=== PATIENT | male | born 1980 | race Caucasian/White ===

== ENCOUNTER 2020-12-15 02:36 | Outpatient (CLI) | payer BC, SELFPAY ==
--- NOTE | 2020-12-15 07:30 | DI.RAD_ITS ---
Exam(s) XR HIP RT COMPLETE AP PELVIS EXAM: XR HIP RT COMPLETE AP PELVIS INDICATION: ACUTE RT HIP PAIN,M25.551. COMPARISON: No exams were available for comparison TECHNIQUE: 2D digital imaging was performed. FINDINGS: Hip joint spaces are well maintained. There is mild bilateral acetabular spurring. SI joints and pu bic symphysis are unremarkable. IMPRESSION: Mild degenerative changes of both hips. DATA REPOSITORY: RADIATION DOSE DELIVERED:
== END 2020-12-15 02:56 ==
PROVIDERS: PCP Nurse Practitioner; Visit Provider Nurse Practitioner Family
DX: M25.551 Pain in right hip (principal); M16.0 Bilateral primary osteoarthritis of hip
CPT/HCPCS: 73502

== ENCOUNTER 2020-12-16 20:32 | Outpatient (CLI) | payer BC, SELFPAY ==
--- NOTE | 2020-12-16 10:45 | DI.RAD_ITS ---
Exam(s) XR LUMBAR SPINE COMPLETE EXAM: XR LUMBAR SPINE COMPLETE CLINICAL HISTORY: question lumbar disc etiology M25.551 PAIN RT HIP TECHNIQUE: COMPARISON: No exams were available for comparison FINDINGS: Five views were obtained. The intervertebral disc spaces are fairly well maintained. There is no co mpression fracture seen. There is no evidence of spondylolysis or spondylolisthesis. Little if any degenerative changes noted. IMPRESSION: Negative examination of the lumbar spine. The requisition raises the possibility disc disease and if there is a question of disc herniation additional evaluation with lumbar MRI would be suggested. RADIATION DOSE DELIVERED: Total DLP
== END 2020-12-16 20:52 ==
PROVIDERS: PCP Nurse Practitioner; Visit Provider Nurse Practitioner Family
DX: M25.551 Pain in right hip (principal)
CPT/HCPCS: 72110

== ENCOUNTER 2020-12-26 03:01 | Outpatient (CLI) | payer BC, SELFPAY ==
--- NOTE | 2020-12-26 07:45 | DI.MRI_ITS ---
Exam(s) MR LUMBAR SPINE WO EXAM: MR LUMBAR SPINE WO CLINICAL HISTORY: Bulging lumbar disc M51.26 DISC DISPLACEMENT LUMBAR REGION TECHNIQUE: Multiplanar multisequence MRI of the Lumbar Spine was performed. CONTRAST MATERIAL: Noncontrast. COMPARISON: CR XR LUMBAR SPINE COMPLETE from 12/16/2020 FINDINGS: Bones: The last intervertebral disc space is designated the L5/S1 level for the numbering purpose of this examination. The vertebral body heights are well maintained. Alignment is satisfactory. The sig nal characteristics are unremarkable. Cord: The conus tip ends at the T12 level. It is of normal size and signal intensity. T12-L1: No disc herniations or bulges are present. L1-2: No disc herniations or bulges are present. L2-3: No disc herniations or bulges are present. L3-4: No disc herniations or bulges are present. L4-5: There is partial disc desiccation. There is mild broad-based disc bulging. There is a superi mposed right sided disc herniation with superior extrusion of disc material. The disc material appea rs to extend into the right neural foramen.. L5-S1: Partial disc desiccation. Small endplate osteophytes per projecting posteriorly. Small cent ral disc protrusion without definite nerve root impingement. Mild facet joint degenerative changes m ild right neural foraminal narrowing. The visualized SI joints and sacrum are well maintained. The paraspinal soft tissues are unremarkable . . IMPRESSION: Right-sided disc herniation at L4-5 with extrusion of disc material and extension of disc material in to the right neural foramen. DATA REPOSITORY:
== END 2020-12-26 03:21 ==
PROVIDERS: PCP Nurse Practitioner; Visit Provider Nurse Practitioner Family
DX: M51.26 Other intervertebral disc displacement, lumbar region (principal)
CPT/HCPCS: 72148

== ENCOUNTER 2021-02-22 02:24 | Outpatient (CLI) | payer BC, SELFPAY ==
[2021-02-22 15:44] LABS: Hemoglobin A1C 5.3 % (<5.7)
[2021-02-22 16:55] LABS: Calculated LDL 93 mg/dL (<100); Cholesterol 169 mg/dL (<200); HDL Cholesterol 60 mg/dL (40-60); Triglyceride 80 mg/dL (<150)
[2021-02-22 18:19] LABS: PSA, Screening 1.2 ng/mL (0.0-2.5)
== END 2021-02-22 02:25 | disposition home or self-care (01) ==
LOC: LOS 02:24
PROVIDERS: PCP Nurse Practitioner; Visit Provider Nurse Practitioner
DX: Z13.1 Encounter for screening for diabetes mellitus (principal); Z13.6 Encounter for screening for cardiovascular disorders; Z12.5 Encounter for screening for malignant neoplasm of prostate; Z80.42 Family history of malignant neoplasm of prostate
CPT/HCPCS: 36415; 80061; 84153; 83036

== ENCOUNTER 2021-03-27 19:39 | Outpatient (REF) | payer BC, SELFPAY ==
[2021-03-28 13:36] LABS: COVID-19 RT-PCR UVMMC Result Negative (Negative)
== END 2021-03-27 19:40 | disposition home or self-care (01) ==
LOC: LBN 19:39
PROVIDERS: PCP Nurse Practitioner; Visit Provider Family Medicine
DX: R50.9 Fever, unspecified (principal); J02.9 Acute pharyngitis, unspecified; Z20.822 Contact with and (suspected) exposure to COVID-19
CPT/HCPCS: U0003; 87070

== ENCOUNTER 2022-05-04 01:45 | Outpatient (CLI) | payer BC, SELFPAY ==
[2022-05-04 15:56] LABS: COMMENT (LAB VIEW ONLY) 230.87 mg/dL
[2022-05-04 15:58] LABS: ALT 23 U/L (16-63); AST 22 U/L (15-37); Albumin 4.3 g/dL (3.4-5.0); Alkaline Phosphatase 58 U/L (46-116); Anion Gap 7.5 mmol/L (3-11); BUN 19 mg/dL (7-18); Bilirubin, Total 0.9 mg/dL (0.2-1.0); CO2 31.5 mmol/L (21.0-32.0); CREATININE 0.9 mg/dL (0.70-1.30); Calcium 9.2 mg/dL (8.5-10.1); Calculated LDL 90 mg/dL (<100); Chloride 100 mmol/L (98-107); Cholesterol 165 mg/dL (<200); Estimated GFR 108.68 (mL/min/1.73m2); Glucose 88 mg/dL (74-106); HDL Cholesterol 67 mg/dL (40-60); Potassium 3.6 mmol/L (3.5-5.1); Sodium 139 mmol/L (136-145); Total Protein 7.4 g/dL (6.4-8.2); Triglyceride 40 mg/dL (<150)
[2022-05-04 22:35] LABS: PSA, Screening 1.7 ng/mL (<=2.5)
[2022-05-06 11:02] LABS: HIV-1/2 Ag & Ab Screen Negative (Negative)
[2022-05-07 09:09] LABS: Hepatitis C Ab w Rflx HCV PCR Negative (Negative)
== END 2022-05-04 01:46 | disposition home or self-care (01) ==
LOC: LBO 01:47
PROVIDERS: PCP Nurse Practitioner Family; Visit Provider Nurse Practitioner Family
DX: Z11.4 Encounter for screening for human immunodeficiency virus [HIV] (principal); Z11.59 Encounter for screening for other viral diseases; I10 Essential (primary) hypertension; Z80.42 Family history of malignant neoplasm of prostate
CPT/HCPCS: 36415; 80053; 80061; 84153; 86803; 87389; 82043; 82570

== ENCOUNTER 2022-07-12 01:36 | Outpatient (CLI) | payer BC, SELFPAY ==
--- NOTE | 2022-07-12 08:00 | DI.MRI_ITS ---
Exam(s) MR LUMBAR SPINE WO EXAM: MR LUMBAR SPINE WO CLINICAL HISTORY: Exacerbationof pain, bulging lumbar disc, m51.26. TECHNIQUE: Multiplanar multisequence MRI of the Lumbar spine was performed. COMPARISON: CR XR LUMBAR SPINE COMPLETE from 12/16/2020 MR MR LUMBAR SPINE WO from 12/26/2020 FINDINGS: Bones: The last intervertebral disc space is designated the L5/S1 level for the numbering purpose of this examination. The vertebral body heights are well maintained. Alignment is satisfactory. The ma rrow signal characteristics are unremarkable. Cord: The conus tip ends at the T12 level. It is of normal size and signal intensity. T12-L1: No disc herniations or bulges are present. No central spinal canal or neural foraminal stenos is. L1-2: No disc herniations or bulges are present. No central spinal canal or neural foraminal stenosis . L2-3: No disc herniations or bulges are present. No central spinal canal or neural foraminal stenosis . L3-4: No disc herniations or bulges are present. No central spinal canal or neural foraminal stenosis . L4-5: Partial disc desiccation and mild loss of disc height. Small end plate osteophytes and mild co ncentric disc bulging. Previously noted foraminal disc herniation no longer present. No central spi nal canal or neural foraminal stenosis. L5-S1: Moderate loss of disc height, small endplate osteophytes and mild broad-based disc bulging. R ight paracentral disc herniation with inferior extrusion of disc material impinging on the right S1 n erve root. The extruded disc material measures approximately 2 cm transverse by 1 cm AP by 1.5 cm ce phalo caudad. No central spinal canal stenosis. Degenerative changes of the facet joint combined wi th disc osteophytes to produce mild right neural foraminal narrowing.. The visualized SI joints and sacrum are well maintained. Soft tissues: The paraspinal soft tissues are unremarkable. IMPRESSION: Large right paracentral disc extrusion at L5-S1 with nerve root impingement.. DATA REPOSITORY:
== END 2022-07-12 01:56 ==
LOC: DI 01:36
PROVIDERS: PCP Nurse Practitioner Family; Visit Provider Nurse Practitioner Family
DX: M51.26 Other intervertebral disc displacement, lumbar region (principal); M51.17 Intervertebral disc disorders with radiculopathy, lumbosacral region
CPT/HCPCS: 72148

== ENCOUNTER 2022-11-07 09:27 | Outpatient (REF) | payer BC, SELFPAY ==
[2022-11-07 11:42] LABS: Anion Gap 6.7 mmol/L (3-11); BUN 16 mg/dL (7-18); CO2 30.3 mmol/L (21.0-32.0); CREATININE 0.9 mg/dL (0.70-1.30); Calcium 9.1 mg/dL (8.5-10.1); Chloride 104 mmol/L (98-107); Estimated GFR 108.68 (mL/min/1.73m2); Glucose 93 mg/dL (74-106); Potassium 4.7 mmol/L (3.5-5.1); Sodium 141 mmol/L (136-145)
== END 2022-11-07 09:28 | disposition home or self-care (01) ==
LOC: LBN 09:27
PROVIDERS: PCP Nurse Practitioner Family; Visit Provider Nurse Practitioner Family
DX: I10 Essential (primary) hypertension (principal)
CPT/HCPCS: 80048

== ENCOUNTER 2023-04-04 03:25 | Outpatient (CLI) | payer BC, SELFPAY ==
[2023-04-04 15:01] LABS: Anion Gap 5.4 mmol/L (3-11); BUN 17 mg/dL (7-18); CO2 31.6 mmol/L (21.0-32.0); Calcium 9.5 mg/dL (8.5-10.1); Chloride 101 mmol/L (98-107); Estimated GFR 95.18 (mL/min/1.73m2); Glucose 96 mg/dL (74-106); Potassium 3.9 mmol/L (3.5-5.1); Sodium 138 mmol/L (136-145)
[2023-04-04 21:51] LABS: PSA, Screening 2.2 ng/mL (<=2.5)
== END 2023-04-04 03:26 | disposition home or self-care (01) ==
LOC: LBO 03:25
PROVIDERS: PCP Nurse Practitioner Family; Visit Provider Nurse Practitioner Family
DX: Z12.5 Encounter for screening for malignant neoplasm of prostate (principal); I10 Essential (primary) hypertension
CPT/HCPCS: 36415; 80048; 84153

== ENCOUNTER 2024-03-24 08:56 | Outpatient (REF) | payer BC, SELFPAY ==
[2024-03-24 13:05] LABS: Anion Gap 5.5 mmol/L (3-11); BUN 18 mg/dL (7-18); CO2 31.5 mmol/L (21.0-32.0); CREATININE 0.9 mg/dL (0.70-1.30); Calcium 9.1 mg/dL (8.5-10.1); Chloride 105 mmol/L (98-107); Estimated GFR 107.33 (mL/min/1.73m2); Glucose 79 mg/dL (74-106); Potassium 4.6 mmol/L (3.5-5.1); Sodium 142 mmol/L (136-145)
[2024-03-24 23:23] LABS: PSA, Screening 4.4 ng/mL (<=2.5)
== END 2024-03-24 08:57 | disposition home or self-care (01) ==
LOC: LBN 08:56
PROVIDERS: PCP Nurse Practitioner Family; Visit Provider Nurse Practitioner Family
DX: Z12.5 Encounter for screening for malignant neoplasm of prostate (principal); I10 Essential (primary) hypertension
CPT/HCPCS: 80048; 84153

== ENCOUNTER 2024-04-16 03:54 | Outpatient (CLI) | payer BC, SELFPAY ==
[2024-04-16 18:27] LABS: PSA, Diagnostic 4.3 ng/mL (<=2.5)
== END 2024-04-16 03:55 | disposition home or self-care (01) ==
LOC: LBO 03:54
PROVIDERS: PCP Nurse Practitioner Family; Visit Provider Nurse Practitioner Family
DX: R97.20 Elevated prostate specific antigen [PSA] (principal)
CPT/HCPCS: 36415; 84153

== ENCOUNTER 2024-05-22 14:35 | Outpatient (REF) | payer BC, SELFPAY ==
--- NOTE | 2024-05-22 14:20 | PROST_PTH ---
PATIENT: Traik Acharya LOC: [facility] U#:[id number] AGE/SX: 44/M ROOM: RE05/22/[address]: Gurpreet Mae MD : 1980 BED: DIS: 05/22/2024 SPEC #: [id number] RECD: 05/22/24 17:38 STATUS: ZAHIDA KANG #: [id number] RONEY: 05/22/24 14:[address]: Gurpreet Mae DEPT: Surgical Specimen RECD BY: Becki Lopez ENTERED: 05/22/24 17:39 SP TYPE: PROST OTHR DR: Raymond Grider DNP Tissues: 1 - PROSTATE NEEDLE BIOPSY 2 - PROSTATE NEEDLE BIOPSY 3 - PROSTATE NEEDLE BIOPSY 4 - PROSTATE NEEDLE BIOPSY 5 - PROSTATE NEEDLE BIOPSY 6 - PROSTATE NEEDLE BIOPSY 7 - PROSTATE NEEDLE BIOPSY 8 - PROSTATE NEEDLE BIOPSY 9 - PROSTATE NEEDLE BIOPSY 10 - PROSTATE NEEDLE BIOPSY 11 - PROSTATE NEEDLE BIOPSY 12 - PROSTATE NEEDLE BIOPSY Procedures: GROSS AND MICRO LEVEL 4 Comments: [id number]
== END 2024-05-22 14:36 | disposition home or self-care (01) ==
LOC: LBN 14:35
PROVIDERS: PCP Nurse Practitioner Family; Visit Provider Urology
DX: C61 Malignant neoplasm of prostate (principal)
CPT/HCPCS: 88305

== ENCOUNTER 2024-06-10 16:15 | Outpatient (CLI) | payer BC, SELFPAY ==
--- NOTE | 2024-06-10 16:15 | RT.EKG_ITS ---
APPROVED REPORT Exam: Resting ECG Reason for Exam: Chest discomfort Patient Location: O HR:68 bpm ECG Measurements Heart Rate 68 AXIS FL 144 P 73 QRSd 105 QRS 62 QT 418 T 70 QTc 445 Conclusion Sinus rhythm...normal P axis, V-rate 50- 99 Anteroseptal infarct, age indeterminate...Q >35mS, T neg, V1-V2
== END 2024-06-10 16:16 | disposition home or self-care (01) ==
LOC: DI.CM 16:15
PROVIDERS: PCP Nurse Practitioner Family; Visit Provider Physician Assistant
DX: R07.89 Other chest pain (principal)
CPT/HCPCS: 93010

== ENCOUNTER 2024-06-10 17:07 | Emergency (ER) | payer BC, SELFPAY ==
[2024-06-10] VITALS (34 sets, daily range): BP systolic 141–173; BP diastolic 101–108; PULSE 65–81; RESP 14–17; TEMP 36.2–36.7; O2SAT 98–100
--- NOTE | 2024-06-10 17:00 | RT.EKG_ITS ---
APPROVED REPORT Exam: Resting ECG Reason for Exam: CP x 2-3 days Patient Location: E HR:64 bpm ECG Measurements Heart Rate 64 AXIS NV 156 P 47 QRSd 98 QRS 24 QT 404 T 32 QTc 418 Conclusion Sinus rhythm...normal P axis, V-rate 60- 99
[2024-06-10 18:35] LABS: Abs Immature Grans 0.01 10^3/uL (0.0-0.06); Absolute Basophil Count 0.02 10^3/uL (0.0-0.2); Absolute Eosinophil Count 0.07 10^3/uL (0.0-0.7); Absolute Lymphocyte Count 1.04 10^3/uL (1.2-3.4); Absolute Monocyte Count 0.31 10^3/uL (0.1-0.8); Absolute Neutrophil Count 2.87 10^3/uL (1.2-6.7); Basophils % 0.5 %; Eosinophils % 1.6 %; HCT 46.1 % (40.0-50.0); Immature Grans % 0.2 %; Lymphocytes % 24.1 %; MCH 30.4 pg (27.0-33.0); MCHC 32.5 % (32.0-36.0); MCV 94 fL (80-95); MPV 10.1 fL (8.0-11.0); Monocytes % 7.2 %; Neutrophils % 66.4 %; Platelet Count 270 10^3/uL (130-400); RBC 4.93 10^6/uL (4.36-5.78); RDW-SD 44.6 fL; WBC 4.32 10^3/uL (4.4-10.8)
--- NOTE | 2024-06-10 18:37 | ED.GENADUL_ITS ---
Discharge Plan Disposition Patient Disposition: Home Condition: Good Discharge Details Clinical Impression: Atypical chest pain, Hypertension Primary Care Provider: Raymond Greenfield ED Provider: Ag Henson Home Meds and New Rx's Prescriptions: Continued multivitamin [Daily Multi-Vitamin] Tablet 1 tab PO DAILY lisinopril 10 mg tablet 10 mg PO DAILY Qty: 90 3RF clindamycin-benzoyl peroxide 1.2 %(1 % base) -5 % gel 1 applic topical DAILY Qty: 90 2RF niacinamide 500 mg tablet 500 mg PO DAILY Discharge Instructions Instructions: Costochondritis, Controlling your blood pressure through lifestyle, Chest Pain, Adult ED Discharge Data Discharge Physician: Ag Henson HPI General Date/Time Provider Initiated Documentation: 06/10/24 18:29 . HPI Narrative: Patient presents emergency department stating that he was recently started having chest pain for the last week. He states he is under a lot of stress for he has a strong family history of prostate cancer and he was recently diagnosed with a small prostate cancer which he has to undergo prostatectomy soon. Said he has not been sleeping and he is having some midsternal sharp chest pains not related to exercise and can occur at anytime of the day. Reports she also takes lisinopril for hypertension and he has not taken the last 3 days. 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 States that he does not get the chest pain on exercise Related Data Home Medications ?Medication ?Instructions ?Recorded ?Confirmed multivitamin (Daily Multi-Vitamin 1 tab PO DAILY 03/22/23 06/10/24 tablet) lisinopril 10 mg tablet 10 mg PO DAILY #90 tabs 03/24/24 06/10/24 clindamycin 1.2 % (1 % 1 applic topical DAILY #90 grams 04/29/24 06/10/24 base)-benzoyl peroxide 5 % topical gel niacinamide 500 mg tablet 500 mg PO DAILY 06/10/24 06/10/24 Previous Rx's ?Medication ?Instructions ?Recorded lisinopril 10 mg tablet 10 mg PO DAILY #90 tabs 03/24/24 clindamycin 1.2 % (1 % 1 applic topical DAILY #90 grams 04/29/24 base)-benzoyl peroxide 5 % topical gel Allergies Allergy/AdvReac Type Severity Reaction Status Date / Time No Known Allergies Allergy Verified 06/10/24 17:15 General Stated Complaint: Chest Pain TEREZA: 3 Review of Systems Narrative: Review of Systems: Constitutional: No fevers, chills, sweats Eye: No recent visual problems ENT: No ear pain, nasal congestion, sore throat Respiratory: No shortness of breath, cough Cardiovascular: By think, palpitations, syncope Gastrointestinal: No nausea, vomiting, diarrhea Genitourinary: No hematuria Angel/Lymph: Negative for bruising tendency, swollen lymph glands Endocrine: Negative for excessive thirst, excessive hunger Musculoskeletal: No back pain, neck pain, joint pain, muscle pain, decreased range of motion Integumentary: No rash, pruritus, abrasions Neurologic: Alert & oriented X 4 Psychiatric: No anxiety, depression Exam Narrative Exam Narrative: Exam; vitals signs as reported above normal Constitutional; In no acute distress, afebrile General: cooperative, healthy appearing, comfortable and no acute distress HEENT: Head: normal to inspection, no palpable skull fracture and normocephalic atraumatic Eyes: : appearance normal, both eyes and all related structures EOM intact bilaterally Pupils: PERRL : conjunctiva normal Direct ophthalmoscopy: normal light reflex, normal conjunctiva, normal visual acuity Ears: Normal TM, normal external canal Nose: normal no rhinorreha Neck no JVD, supple non tender Neck: normal visual inspection, full ROM and no lymphadenopathy Chest: normal inspection of the chest Respiratory : normal respiratory effort and able to speak in complete sentences no wheezing no rales Cardio Rate: regular rate, rhythm: regular rhythm normal heart sounds S1 and S2 no murmurs, gallops, or rubs GI : normal to inspection, normal bowel sounds, soft, non tender, non distended, no organomegaly Back/Spine/ no CVA tenderness Thoracic/Lumbar Spine: no tenderness or deformities Skin no rashes or lesions Neuro: patient alert oriented x 4 and no meningeal signs, Cranial Nerves: CN's II-XI intact bilaterally, Cognition: normal cognition, Speech: speech normal, Gait: normal gait, Depp tendon reflexes normal 2+ muscle strength 5/5 bilaterally Extremities, no edema, full range of motion, normal strength l: Course Vital Signs Vital signs: Vital Signs Temperature 36.2 C L 06/10/24 17:13 Pulse 71 06/10/24 17:13 Respiratory Rate 16 06/10/24 17:13 Blood Pressure 173/105 H 06/10/24 17:13 Pulse Oximetry 98 06/10/24 17:13 Temperature 36.2 C L 06/10/24 17:13 Temperature Source Oral 06/10/24 17:13 Pulse 71 06/10/24 17:13 Respiratory Rate 16 06/10/24 17:13 Blood Pressure 173/105 H 06/10/24 17:13 Blood Pressure Position Sitting 06/10/24 17:13 Pulse Oximetry 98 06/10/24 17:13 Oxygen Delivery Method Room Air 06/10/24 17:13 Oxygen Flow Rate 0 06/10/24 17:13 Pain Level 3 06/10/24 17:13 Lab/Test Results Lab/Test Results: Laboratory Tests Range/Units 06/10/24 18:20 WBC (4.4-10.8) 10^3/uL 4.32 L RBC (4.36-5.78) 10^6/uL 4.93 Hgb (13.5-17.5) g/dL 15.0 Hct (40.0-50.0) % 46.1 MCV (80-95) fL 94 MCH (27.0-33.0) pg 30.4 MCHC (32.0-36.0) % 32.5 RDW (11.8-14.1) % 13.0 Plt Count (130-400) 10^3/uL 270 MPV (8.0-11.0) fL 10.1 Immature Gran % % 0.2 Neutrophils % % 66.4 Lymphocytes % % 24.1 Monocytes % % 7.2 Eosinophils % % 1.6 Basophils % % 0.5 Nucleated RBC % (0.0-0.3) % 0.0 Absolute Neutrophils (1.2-6.7) 10^3/uL 2.87 Absolute Lymphocytes (1.2-3.4) 10^3/uL 1.04 L Absolute Monocytes (0.1-0.8) 10^3/uL 0.31 Absolute Eosinophils (0.0-0.7) 10^3/uL 0.07 Absolute Basophils (0.0-0.2) 10^3/uL 0.02 Medical Decision Making MDM: Summary: Patient presented to the emergency department complaining of sharp chest pain for about a week which is coincidental that it is after he was diagnosed with having prostate cancer which she will undergo a prostatectomy soon. Reports also some episodes of insomnia. Here in the emergency department he had an EKG done which does not show any abnormalities labs done which include D-dimer and serial troponins are negative. Echocardiogram at the bedside [id number] ultrasound was done showing a normal left ventricle no regional abnormalities. At this time after acidification he has a heart score of of 1 so he is at very low probability for acute coronary syndrome. Most like this is related to the stress and anxiety that he is undergoing to and he will be discharged home Data Review Analysis All the data on this patient was reviewed by me including laboratory and imaging studies as well as bedside studies performed by me Independent review of Studies Imaging POCUS as reported above Lab: As reported above Risk Stratification: Patient who only has hypertension is a risk factor with a heart score of 1 Differential Diagnosis: 1. Atypical pain 2. Anxiety 3. Chest wall pain 4. Costochondritis 5. Consultants: Shared disposition: Patient understands position and will follow taking his blood pressure meds Impression: Medical Records Medical records reviewed: Yes I reviewed the patient's medical records. Lab Data Lab results reviewed: Yes I reviewed the patient's lab results. ECG Data Attestation: I personally reviewed and interpreted this ECG (s) as follows: Prior ECG tracings: available for review Interpretation: Normal sinus rhythm with heart rate [address]-T change Quality:SDOH Health Related Social Needs: No Data to Display PFSH All Active Problems (Updated 06/10/24 @ 22:06 by Ag Henson MD) Atypical chest pain (Acute) Prostate cancer (Chronic) Elevated PSA, less than 10 ng/ml (Acute) Swelling of knee joint, left (Acute) Sebaceous cyst (Acute) Hypertension (Chronic) Family history of prostate cancer (Acute) Father around age 60 Bilateral tinnitus (Acute) Raynauds syndrome (Acute) below 20 degree Bulging lumbar disc (Acute) Dx Dec 05, 2020, in PT; spine clinic [facility]- as needed f/u Medical History HLD (hyperlipidemia) Onychomycosis toenails, resolved with topical antifungals Hip pain, right Family History Mother No problems noted. Father Cancer throat cancer/prostate cancer Hypertension Son No problems noted. Daughter No problems noted. Maternal Grandfather No problems noted. Paternal Grandfather , 70's No problems noted. Maternal Grandmother No problems noted. Paternal Grandmother Diabetes Social History Smoking/Tobacco Use Status: Never Second Hand Exposure: Yes Smoking risk assessment performed?: Yes Alcohol Intake: current Alcohol Intake frequency: a few times a month Alcohol type: beer Drug use: Never Substance use type: does not use Caregiver/Support person: No Household members: spouse and children Housing: house Communication Needs: None Do you need help understanding health information?: Never Pets and animals: Yes Pets and animals: dog(s) Sexually active: Yes Do you think of yourself as: straight/heterosexual Current gender identity: male What is your relationship status?: How often do you talk on the phone with friends or family?: once per week How often do you get together with friends or relatives?: twice per week How often do you attend synagogue or scientology services?: 1-3 times per year Do you belong to any clubs or organized social groups?: no Panel score (0-1 are the most socially isolated patients): 2 What type of physical activity do you participate in: none Nancie/Holiness: No preference Special nancie needs: No Seatbelt use: always Helmet use: Yes Helmet use: always Drive intox or ride w/intox driver examiner: No PAWSS Have you Been Recently Intoxicated or Drunk Within the Last 30 days?: No Have you Ever Experienced Previous Episodes of Alcohol Withdrawal?: No Have you ever Experienced Withdrawal Seizures?: No Have you ever Experienced Delirium Tremens(DT)s?: No Have you ever undergone Alcohol Rehabilitation Treatment (i.e, inpt ot outpatient treatment programs)?: No Have you ever Experienced Blackouts?: No Have you ever Combined Alcohol with other Downers within the last 90 days?: No Have you ever Combined Alcohol with any other Substance of Abuse during the last 90 days?: No Positive Blood Alcohol level on Presentation? [PCS.BAL]: Unable to Obtain Evidence of Increased Autonomic Activity (i.e. HR>120, tremor, sweating, agitation, nausea)?: No Result: 0 POCUS Exam (ED) Limited Cardiac Exam DATE OF EXAM: 06/10/24 TIME OF EXAM: 21:30 PROVIDER THAT PERFORMED THE STUDY: Ag Henson REASON FOR EXAM: Chest pain VISUALIZED STRUCTURES: Four Chambers, Left atrium, Left ventricle, LVOT, Right atrium, Right ventricle, Aortic valve, Mitral valve, Interventricular septum and IVC VIEW OBTAINED: Apical 4-Chamber, Parasternal long-axis, Parasternal short-axis and Subxiphoid PERTINENT FINDINGS/IMPRESSION: No apparent abnormalities DIFFERENTIAL DIAGNOSES: No regional wall abnormalities no pericardial effusion normal ejection fraction normal RV size and function normal echocardiogram Exam complete
[2024-06-10 18:53] LABS: ALT 30 U/L (16-63); AST 19 U/L (15-37); Albumin 4.3 g/dL (3.4-5.0); Alkaline Phosphatase 66 U/L (46-116); Anion Gap 6.3 mmol/L (3-11); BUN 16 mg/dL (7-18); Bilirubin, Total 0.61 mg/dL (0.2-1.0); CO2 32.7 mmol/L (21.0-32.0); CREATININE 0.9 mg/dL (0.70-1.30); Calcium 9.1 mg/dL (8.5-10.1); Chloride 104 mmol/L (98-107); Estimated GFR 107.33 (mL/min/1.73m2); Glucose 95 mg/dL (74-106); Lipase 48 U/L (<78); Sodium 143 mmol/L (136-145); Total Protein 7.6 g/dL (6.4-8.2); Troponin I 7 ng/L (<or=76)
[2024-06-10 19:00] LABS: D-Dimer 207 ng/mlFEU (<500)
[2024-06-10 20:30] LABS: Troponin I 6 ng/L (<or=76)
== END 2024-06-10 22:13 | disposition home or self-care (01) ==
PROVIDERS: Emergency Provider Emergency Medicine Emergency Medical Services; PCP Nurse Practitioner Family
DX: R07.89 Other chest pain (principal); F41.9 Anxiety disorder, unspecified; I10 Essential (primary) hypertension; E78.5 Hyperlipidemia, unspecified; C61 Malignant neoplasm of prostate
CPT/HCPCS: 36415; 80053; 83690; 93005; 93308; 99285; 84484; 85025; 85379; 93010; 99284

== ENCOUNTER 2024-07-16 01:30 | Outpatient (CLI) | payer BC, SELFPAY ==
--- NOTE | 2024-07-16 07:00 | DI.MRI_ITS ---
Exam(s) MR ABDOMEN WO/W EXAM: MR ABDOMEN WO/W CLINICAL HISTORY: abnl liver uptake on psma at [facility] [place],liver mass,r16.0 TECHNIQUE: Multiplanar multisequence MRI of the Abdomen was performed. CONTRAST MATERIAL: IV Contrast: 16 mL of Dotarem contrast administered. FINDINGS: Lung bases: Unremarkable. Liver: There is no evidence of a solid hepatic mass. There are 2 small well-circumscribed cyst in th e right lobe of the liver. The largest measures 5 mm. Pancreas: Unremarkable. No evidence of a pancreatic mass or peripancreatic fluid collection. Gallbladder and Bile Ducts: No evidence of cholelithiasis. No biliary ductal dilatation is present. Adrenals: No evidence of an adrenal mass. Kidneys: No evidence of a solid renal mass or obstruction. A simple cyst in the left renal pelvis. N o follow-up is recommended. Spleen: Unremarkable. Note is made of an accessory spleen in the hilum. Bowel: No evidence of bowel obstruction or bowel wall thickening. Aorta: Unremarkable. Soft Tissues: Unremarkable. Bone: Marrow signal is within normal limits. Lymph Nodes: Unremarkable. IMPRESSION: No evidence of a P[place]ock metastasis. DATA REPOSITORY:
[2024-07-16] MEDS: Normal Saline - Diluent 50 ML VIAL 25 ML IJ (08:59)
[2024-07-16] MEDS: Gadoterate meglumine 20 ML VIAL 16 ML IVP (09:00)
== END 2024-07-16 01:50 ==
LOC: DI 01:30
PROVIDERS: PCP Nurse Practitioner Family; Visit Provider Nurse Practitioner Gerontology
DX: R16.0 Hepatomegaly, not elsewhere classified (principal); R93.2 Abnormal findings on diagnostic imaging of liver and biliary tract
CPT/HCPCS: 74183

== ENCOUNTER 2024-08-24 16:01 | Outpatient (REF) | payer BC, SELFPAY ==
[2024-08-24 11:13] LABS: Bilirubin Negative (Negative); Blood Negative (Negative); Clarity Clear (Clear); Glucose 100 mg/dL (Negative); Ketones Negative (Negative); Leukocyte Esterase Negative (Negative); Nitrite Negative (Negative); Urobilinogen 0.2 mg/dL (Up to 0.2); pH 6.5 (5-8)
== END 2024-08-24 16:02 | disposition home or self-care (01) ==
LOC: LBN 16:01
PROVIDERS: PCP Nurse Practitioner Family; Visit Provider Nurse Practitioner Gerontology
DX: C61 Malignant neoplasm of prostate (principal)
CPT/HCPCS: 81003; 87086

== ENCOUNTER 2024-11-11 08:42 | Outpatient (CLI) | payer BC, SELFPAY | END 2024-11-11 08:43 | disposition home or self-care (01) | LOC: LBO 08:43 | PROVIDERS: PCP Nurse Practitioner Family; Visit Provider Nurse Practitioner Gerontology | DX: C61 Malignant neoplasm of prostate (principal) | CPT/HCPCS: 36415; 84153 ==

== ENCOUNTER 2024-12-12 16:05 | Emergency (ER) | payer BC, SELFPAY ==
[2024-12-12 16:09] VITALS: BP 135/89; PULSE 66; TEMP 36.6; O2SAT 94
--- NOTE | 2024-12-12 16:53 | W.ED.GENAD ---
Discharge Plan Disposition Patient Disposition: Home Discharge Details Clinical Impression: Laceration of left hand Primary Care Provider: Raymond Greenfield ED Provider: Efren Zayas Home Meds and New Rx's Prescriptions: Continued lisinopril 10 mg tablet 10 mg PO DAILY Qty: 90 3RF clindamycin-benzoyl peroxide 1.2 %(1 % base) -5 % gel 1 applic topical DAILY Qty: 90 2RF niacinamide 500 mg tablet 500 mg PO DAILY Discharge Instructions Instructions: Laceration Repair With Stitches ED Additional Instructions: Please follow-up with your primary care provider regarding your visit to the emergency department today. Be sure to discuss results of all test performed here today to include radiology, and laboratory testing as well as results for any pending cultures. You may follow-up with your primary care provider, urgent care or emergency department for suture removal I would recommend with within 10 to 14 days. Should your symptoms worsen, or if you develop new concerning symptoms such as redness, worsening pain, puslike discharge, rash, fever, chills nausea and vomiting, please return immediately emergency department for further evaluation. HPI General Date/Time Provider Initiated Documentation: 12/12/24 16:22. HPI Narrative: MDM/Narrative: 44-year-old male with hand laceration. No foreign bodies, tetanus up-to-date, normal hand movement. Area numbed, wound irrigated and closed. Discharge home with instructions to return if increased pain, redness, swelling, or signs of infection. This document was created with assistance from [employer]. The patient consented to its use. Disposition: Home HPI: The patient is a 44-year-old left-handed male who presents with a laceration to the hand sustained from a fall onto a metal stake while engaging in physical activity (playing tag). The injury occurred approximately 30 minutes prior to presentation. The patient reports experiencing burning pain at the site of the laceration, denies any additional injuries, and confirms the absence of foreign bodies within the wound. The patient has a medical history significant for prostate cancer, for which he underwent surgical intervention in 2021. He is currently in recovery and has not received chemotherapy. ROS: Negative besides as mentioned above Exam: Vital signs: Reviewed. General Appearance: Alert and oriented. No acute distress. HEENT: NCAT, EOMI, not icteric. External ears normal. No rhinorrhea. Moist mucous membranes. Neck: Supple, full range of motion, no observable masses, No meningeal sign. Respiratory: No Respiratory distress. No tachypnea. Cardiovascular: RRR, no edema. Gastrointestinal: Soft, nondistended, No rebound tenderness. Back: No midline tenderness to palpation or palpable step-offs of the C/T/L spine. Musculoskeletal: Full range of motion in hand, normal thumb and finger strength. Skin: There is approximately 3 cm stellate on the palmar aspect just proximal to the thumb over the thenar eminence hand laceration, no foreign bodies. Neurological: Normal Gait, Grossly intact. Psychiatric: Appropriate for situation. Related Data Home Medications ?Medication ?Instructions ?Recorded ?Confirmed lisinopril 10 mg tablet 10 mg PO DAILY #90 tabs 03/24/24 07/06/24 clindamycin 1.2 % (1 % 1 applic topical DAILY #90 grams 04/29/24 07/06/24 base)-benzoyl peroxide 5 % topical gel niacinamide 500 mg tablet 500 mg PO DAILY 06/10/24 07/06/24 Previous Rx's ?Medication ?Instructions ?Recorded lisinopril 10 mg tablet 10 mg PO DAILY #90 tabs 03/24/24 clindamycin 1.2 % (1 % 1 applic topical DAILY #90 grams 04/29/24 base)-benzoyl peroxide 5 % topical gel Allergies Allergy/AdvReac Type Severity Reaction Status Date / Time No Known Allergies Allergy Verified 06/26/24 16:17 General Stated Complaint: Laceration TEREZA: 3 Course Vital Signs Vital signs: Vital Signs Temperature 36.6 C 12/12/24 16:09 Pulse 66 12/12/24 16:09 Blood Pressure 135/89 12/12/24 16:09 Pulse Oximetry 94 12/12/24 16:09 Temperature 36.6 C 12/12/24 16:09 Temperature Source Oral 12/12/24 16:09 Pulse 66 12/12/24 16:09 Blood Pressure 135/89 12/12/24 16:09 Pulse Oximetry 94 12/12/24 16:09 Procedure Laceration Laceration 1: Date of Procedure: 12/12/24 Time of procedure: 16:54 Provider that performed the procedure: Efren Zayas Standard Time Out Performed: Yes Patient Consented: Verbally Site: hand Side (If applicable): left Description: stellate Depth: simple, single layer Local anesthetic: Lidocaine 1% and with Epi Amount of anesthesia used (mL): 3 Skin layer closed with: nylon Suture size: 5-0 Number of sutures:: 5 Technique: simple, interrupted Complications: None PFSH All Active Problems (Updated 12/12/24 @ 16:56 by Efren Zayas MD) Laceration of left hand (Acute) History of robot-assisted laparoscopic radical prostatectomy (Acute ~08/2024) Acute stress reaction (Acute) Prostate cancer (Chronic) Elevated PSA, less than 10 ng/ml (Acute) Swelling of knee joint, left (Acute) Sebaceous cyst (Acute) Hypertension (Chronic) Family history of prostate cancer (Acute) Father around age 60 Bilateral tinnitus (Acute) Raynauds syndrome (Acute) below 20 degree Bulging lumbar disc (Acute) Dx Dec 05, 2020, in PT; [place] [facility] [place] f[place]u Medical History HLD (hyperlipidemia) Onychomycosis toenails, resolved with topical antifungals Hip pain, right Family History Mother No problems noted. Father Cancer throat cancer/prostate cancer Hypertension Son No problems noted. Daughter No problems noted. Maternal Grandfather No problems noted. Paternal Grandfather , 70's No problems noted. Maternal Grandmother No problems noted. Paternal Grandmother Diabetes Social History Smoking/Tobacco Use Status: Never Second Hand Exposure: Yes Smoking risk assessment performed?: Yes Alcohol Intake: current Alcohol Intake frequency: a few times a month Alcohol type: beer Drug use: Never Substance use type: does not use Caregiver/Support person: No Household members: spouse and children Housing: house Communication Needs: None Do you need help understanding health information?: Never Pets and animals: Yes Pets and animals: dog(s) Sexually active: Yes Do you think of yourself as: straight/heterosexual Current gender identity: male What is your relationship status?: How often do you talk on the phone with friends or family?: once per week How often do you get together with friends or relatives?: twice per week How often do you attend yazdanism or congregational services?: 1-3 times per year Do you belong to any clubs or organized social groups?: no Panel score (0-1 are the most socially isolated patients): 2 What type of physical activity do you participate in: none Nancie/Jewish: No preference Special nancie needs: No Seatbelt use: always Helmet use: Yes Helmet use: always Drive intox or ride w/intox 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
== END 2024-12-12 17:17 | disposition home or self-care (01) ==
PROVIDERS: Emergency Provider General Practice; PCP Nurse Practitioner Family
DX: S61.412A Laceration without foreign body of left hand, initial encounter (principal); W01.118A Fall on same level from slipping, tripping and stumbling with subsequent striking against other sharp object, initial encounter; Y93.02 Activity, running
CPT/HCPCS: 12002

== ENCOUNTER 2024-12-24 11:10 | Emergency (ER) | payer BC, SELFPAY ==
--- NOTE | 2024-12-24 11:28 | ED.GENADUL_ITS ---
Discharge Plan Disposition Patient Disposition: Home Condition: Stable Discharge Details Clinical Impression: Encounter for removal of sutures Primary Care Provider: Raymond Greenfield ED Provider: Angela Fischer Home Meds and New Rx's Prescriptions: No Action No Known Home Meds Discharge Instructions Instructions: Stitches Removal Additional Instructions: You were seen in the emergency department today for evaluation and removal of the stitches in your left hand. In our department a full physical exam that was quite reassuring, your wound is healing well, and 5 stitches were removed. You can continue to use bacitracin and bandaging over the next few days to keep the area clean and dry. Please follow-up with your primary care provider in the next few days to discuss this visit and any symptoms that change, worsen, or persist. Thank you for allowing us to be part of your care. HPI General Mode of arrival: ambulatory . Date/Time Provider Initiated Documentation: 12/24/24 11:10 . Limitations to Documentation: no limitations . Information obtained by: patient and old records reviewed . HPI Narrative: This is a 44-year-old male patient presenting for suture removal. The patient was seen in our facility approximately 12 days ago, had a laceration over the thenar aspect of the left hand, had 5 stitches placed. Since that event he reports he has been healing well, he is not experiencing pain, has not noted redness or purulent drainage from the area. The patient reports that he is otherwise in his normal state of health and has no acute concerns today. No new numbness, tingling, or weakness, no fevers at home. Related Data Home Medications ?Medication ?Instructions ?Recorded ?Confirmed Unknown [No Known Home Meds] 12/24/24 0 12/24/24 Allergies Allergy/AdvReac Type Severity Reaction Status Date / Time No Known Allergies Allergy Verified 12/24/24 11:26 General Stated Complaint: Recheck TEREZA: 4 Exam Narrative Exam Narrative: Gen: Awake and alert, in no apparent distress HEENT: Non-icteric sclera Neck: Supple Lungs: No apparent respiratory distress, normal respiratory effort. CV: Appears well perfused Abdomen: Non-distended MSK: Moves 4 extremities without apparent limitation in ROM. The patient's left thenar eminence has an approximately 1-1/2 cm laceration with 5 Prolene sutures visualized. The wound is well-approximated and healing appropriately, no surrounding redness, induration, or swelling, no drainage noted Skin: Visualized skin without rashes, cyanosis. Neuro: Normal Gait, no obvious focal deficits or facial asymmetry. Speaks in full, clear sentences. Psych: Appropriate for situation. Course Vital Signs Vital signs: Comment pt declined VS at this time 12/24/24 11:21 Medical Decision Making This is a 44-year-old male patient presenting for evaluation for suture removal. Differential includes but is not limited to appropriately healing laceration, no evidence on physical examination for cellulitis or abscess, wound dehiscence. The sutures were removed at bedside, the patient tolerated the procedure well. The area was redressed with bacitracin and an adhesive bandage and I counseled the patient on wound care instructions for the next few days. At this time, the patient has had a full medical evaluation and is safe for discharge to home. They are hemodynamically stable, ambulatory, and tolerating PO. They are understanding of the follow-up plan and return precautions. They left our facility without incident. Angela Fischer MD [facility], 1928–1983 All Active Problems (Updated 12/24/24 @ 11:29 by Angela Fischer MD) Encounter for removal of sutures (Acute) Laceration of left hand (Acute) History of robot-assisted laparoscopic radical prostatectomy (Acute ~08/2024) Acute stress reaction (Acute) Prostate cancer (Chronic) Elevated PSA, less than 10 ng/ml (Acute) Swelling of knee joint, left (Acute) Sebaceous cyst (Acute) Hypertension (Chronic) Family history of prostate cancer (Acute) Father around age 60 Bilateral tinnitus (Acute) Raynauds syndrome (Acute) below 20 degree Bulging lumbar disc (Acute) Dx Dec 05, 2020, in PT; [place] [facility] [place] Medical History HLD (hyperlipidemia) Onychomycosis toenails, resolved with topical antifungals Hip pain, right Family History Mother No problems noted. Father Cancer throat cancer/prostate cancer Hypertension Son No problems noted. Daughter No problems noted. Maternal Grandfather No problems noted. Paternal Grandfather , 70's No problems noted. Maternal Grandmother No problems noted. Paternal Grandmother Diabetes Social History Smoking/Tobacco Use Status: Never Second Hand Exposure: Yes Smoking risk assessment performed?: Yes Alcohol Intake: current Alcohol Intake frequency: a few times a month Alcohol type: beer Drug use: Never Substance use type: does not use Caregiver/Support person: No Household members: spouse and children Housing: house Communication Needs: None Do you need help understanding health information?: Never Pets and animals: Yes Pets and animals: dog(s) Sexually active: Yes Do you think of yourself as: straight/heterosexual Current gender identity: male What is your relationship status?: How often do you talk on the phone with friends or family?: once per week How often do you get together with friends or relatives?: twice per week How often do you attend judaism or baptist services?: 1-3 times per year Do you belong to any clubs or organized social groups?: no Panel score (0-1 are the most socially isolated patients): 2 What type of physical activity do you participate in: none Nancie/Jain: No preference Special nancie needs: No Seatbelt use: always Helmet use: Yes Helmet use: always Drive intox or ride w/intox 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
== END 2024-12-24 11:34 | disposition home or self-care (01) ==
PROVIDERS: Emergency Provider Emergency Medicine; PCP Nurse Practitioner Family
DX: Z48.02 Encounter for removal of sutures (principal)

== ENCOUNTER 2025-02-05 03:21 | Outpatient (CLI) | payer BC, SELFPAY | END 2025-02-05 03:22 | disposition home or self-care (01) | PROVIDERS: PCP Nurse Practitioner Family; Visit Provider Nurse Practitioner Gerontology | DX: C61 Malignant neoplasm of prostate (principal) | CPT/HCPCS: 36415; 84153 ==

== ENCOUNTER 2025-03-25 09:16 | Outpatient (CLI) | payer BC, SELFPAY ==
[2025-03-25 08:40] LABS: Kit/Specimen SENT
== END 2025-03-25 09:17 | disposition home or self-care (01) ==
LOC: LBO 09:16
PROVIDERS: PCP Nurse Practitioner Family; Visit Provider Urology
DX: Z01.818 Encounter for other preprocedural examination (principal); Z00.00 Encounter for general adult medical examination without abnormal findings
CPT/HCPCS: 36415

== ENCOUNTER 2025-04-01 11:48 | Outpatient (CLI) | payer BC, SELFPAY ==
[2025-04-01 12:20] LABS: HCT 43.6 % (40.0-50.0); HGB 14.4 g/dL (13.5-17.5); MCH 30.4 pg (27.0-33.0); MCHC 33.0 % (32.0-36.0); MCV 92 fL (80-95); RBC 4.73 10^6/uL (4.36-5.78); RDW 12.8 % (11.8-14.1); RDW-SD 43.4 fL; WBC 2.65 10^3/uL (4.4-10.8)
[2025-04-01 12:21] LABS: MPV 10.9 fL (8.0-11.0); Platelet Count 251 10^3/uL (130-400)
[2025-04-01 12:37] LABS: Chloride 105 mmol/L (98-107); Potassium 4.1 mmol/L (3.5-5.1); Sodium 142 mmol/L (136-145)
[2025-04-01 12:39] LABS: CO2 30.4 mmol/L (20.0-31.0)
[2025-04-01 12:43] LABS: Glucose 90 mg/dL (74-106)
[2025-04-01 12:44] LABS: BUN 18 mg/dL (9-23); Calcium 9.0 mg/dL (8.3-10.6)
[2025-04-01 12:45] LABS: Alkaline Phosphatase 72 U/L (46-116); Total Protein 7.1 g/dL (5.7-8.2)
[2025-04-01 12:46] LABS: ALT 23 U/L (10-49); AST 28 U/L (<34); Albumin 4.5 g/dL (3.2-5.0); Bilirubin, Total 1.4 mg/dL (0.2-1.2)
[2025-04-01 16:31] LABS: Anion Gap 7 mmol/L (3-11)
== END 2025-04-01 11:49 | disposition home or self-care (01) ==
LOC: LBO 11:49
PROVIDERS: PCP Nurse Practitioner Family; Visit Provider Radiology Radiation Oncology
DX: C61 Malignant neoplasm of prostate (principal); R97.21 Rising PSA following treatment for malignant neoplasm of prostate
CPT/HCPCS: 36415; 80053; 84153; 84403; 85027; 85025